=== PATIENT | female | born 1990 | race Caucasian/White ===

== ENCOUNTER → 2018-10-02 09:19 | Outpatient (CLI) | payer OTHER, SELFPAY ==
--- NOTE | 2018-10-06 08:02 | PM.PFT.1 ---
Pulmonary Function Test Referral & Results Date Patient Seen: 10/02/18 Requesting provider: Anum Elaine Results: The spirometry demonstrates an FVC of 3.40 L which is 102% of predicted. The FEV1 was measured at 2.45 L which is 85% of predicted. The FEV1/FVC ratio was 72 which is 84% of predicted. Following the administration of bronchodilator there was a 12% improvement in FEV1 and 46% improvement in FEF 25-75%. Lung volumes show an SVC of 3.32 L which is 99% of predicted. The diffusing capacity was measured at 23.85 which is 126% of predicted. The maximum voluntary ventilation was reduced Interpretation: This study demonstrates perhaps extremely mild obstructive lung disease based on minimal reduction in FEV1 and a 30% improvement in that number after bronchodilator as well as a larger improvement in small airway flow based on improvement in FEF 25-75% Lung volumes are normal in diffusing capacity is normal Maximum voluntary ventilation is surprisingly reduced raising the possibility of some neuromuscular disorder, versus poor effort at time of testing Clinical correlation suggested
== END ==
PROVIDERS: Visit Provider Specialist
DX: J45.30 Mild persistent asthma, uncomplicated (principal)
CPT/HCPCS: 94060; 94726; 94729

== ENCOUNTER 2018-10-04 08:40 | Emergency (ER) | payer OTHER, SELFPAY ==
[2018-10-04 08:47] VITALS: BP 116/74; PULSE 78; RESP 16; TEMP 36.2; O2SAT 100; BMI 28.3
--- NOTE | 2018-10-04 09:06 | DI.RAD.S_ITS ---
PROCEDURE: XR CHEST 2V INDICATIONS: dyspnea TECHNIQUE: 2 views of the chest were acquired. COMPARISON: None. FINDINGS: Surgical changes and devices: None. Lungs and pleura: Mild patchy opacity within the perihilar locations bilaterally.. No pleural effusions or pneumothorax. Mediastinum: Mediastinal contours are normal. Heart size is normal. Bones and chest wall: No suspicious bony abnormalities. Soft tissues appear unremarkable. IMPRESSION: Mild bilateral atypical pneumonia. Dictated by: Flory Mcgarry M.D. on 10/04/2018 at 8:42 Approved by: Flory Mcgarry M.D. on 10/04/2018 at 8:42
--- NOTE | 2018-10-04 09:10 | ED.ASTHMA ---
HPI - Asthma General Chief Complaint: Asthma Stated Complaint: Ashma/gas leak in liner roll changer Time Seen by Provider: 10/04/18 08:51 Source: patient Mode of arrival: ambulatory Limitations: no limitations History of Present Illness HPI Narrative: Patient comes emergency department complaining of shortness of breath and increased asthma exacerbations after being exposed to a ?gas leak[place] She does not know what kind of gas was leaking. Patient states that for several days this past week, she was in a closed liner roll changer where apparently the gas leak was primarily taking place. Patient states her last exposure in the closed environment was about 3 days ago. She states that she did work last night, but that the liner roll changer doors were left wide open, and she was in the office and the building. Patient has noted a vague headache throughout the week, and that her asthma seems to be acting up quite a bit more than usual. Patient denies any other asthma triggers recently, such as URI or allergies. She states that she generally uses her inhaler infrequently, and on as needed basis. Patient denies fevers or chills. She has not had a cough. No sputum production. She states she feels a tightness in her chest and a slight pain on the right side of her chest. She states this is worse when she takes a deep breath. Patient states she is otherwise healthy. No calf tenderness or swelling. No other complaints at this time. Related Data Previous Rx's Medication Instructions Recorded prednisone 60 mg PO DAILY #15 tab 10/04/18 Allergies Allergy/AdvReac Type Severity Reaction Status Date / Time No Known Drug Allergies Allergy Verified 10/04/18 08:52 Review of Systems Constitutional Denies chills, Denies fever(s), Denies lethargy and Denies weakness Eyes Denies change in vision, Denies eye discharge, Denies irritation and Denies loss of vision ENT Ears, Nose, Mouth, and Throat: Denies change in voice, Denies neck pain and Denies sore throat Cardiovascular Denies chest pain, Denies irregular heart rhythm, Denies lightheadedness, Denies palpitations, Reports dyspnea, Denies dyspnea on exertion and Denies orthopnea Respiratory Denies cough, Reports dyspnea, Denies dyspnea on exertion and Reports wheezing Gastrointestinal Gastrointestinal: Denies abdominal pain, Denies change in bowel habits, Denies diarrhea, Denies nausea and Denies vomiting Genitourinary Denies hematuria, Denies flank pain, Denies urinary incontinence and Denies urinary urgency Musculoskeletal Denies neck pain Integumentary/Breasts Denies pruritus, Denies erythema, Denies rash and Denies wounds Neurologic Denies confusion, Denies loss of vision and Denies weakness Psychiatric Denies anxiety, Denies confusion, Denies depression, Denies homicidal ideation and Denies suicidal ideation Endocrine Denies palpitations Hematologic/Lymphatic Denies easy bruising Allergic/Immunologic Reports wheezing Exam Initial Vital Signs Initial Vital Signs: Vital Signs Temperature 97.1 F L 10/04/18 08:47 Pulse Rate 78 10/04/18 08:47 Respiratory Rate 16 10/04/18 08:47 Blood Pressure 116/74 10/04/18 08:47 Pulse Oximetry 100 10/04/18 08:47 Const General: cooperative and well developed Nutritional Appearance: well nourished Orientation: alert, awake, oriented x3 and not confused HENVA Head: normocephalic and atraumatic Ears: external ears normal Nose: external nose normal and No nasal discharge Face and sinus: face symmetric and No dry mucous membranes Mouth: oral mucosae normal and moist mucous membranes Teeth and gingiva: dentition normal Eyes General: appearance normal, both eyes and all related structures Eyelids: eyelids normal Conjunctivae: conjunctivae normal Sclera: sclerae normal Pupils: PERRL EOM: EOM intact bilaterally Neck Neck: normal visual inspection, trachea midline, No lymphadenopathy, No midline deformity and No JVD Lymphatic: No lymphedema Chest Chest: normal inspection of the chest Resp Effort & Inspection: normal respiratory effort, able to speak in complete sentences, no respiratory distress and no use of accessory muscles Auscultation: clear to auscultation bilaterally, no rales, no rhonchi and no wheezes Cardio Rate: regular rate Rhythm: regular rhythm Heart Sounds: no click, no gallops, no murmurs and no rubs Pulses: normal peripheral pulses GI Inspection: non-distended Palpation: soft, no hepatosplenomegaly, No guarding, No pulsatile mass and No tender Auscultation: normal bowel sounds Back/Spine/Pelvis Back: No CVA tenderness Cervical Spine: cervical ROM normal and No pain with cervical ROM Thoracic/Lumbar Spine: thoracic and lumbar spine normal to inspection Skin General: no rashes or lesions noted, No jaundice and No petechiae Neuro General: alert, oriented x3, gait normal and no focal motor deficits Speech: speech normal Extrem General: full ROM, no clubbing, cyanosis or edema, no pedal edema and no calf tenderness Psych Appearance: well kempt Mental Status: mental status grossly normal Attitude: cooperative Thought Content: normal and suicidality Judgment: judgment good [facility] Medical History Asthma (Acute) Surgical History No pertinent past surgical history (Acute) Social History Smoking Status: Former smoker Social History Smoking Status: Former smoker Course Course Narrative: Patient stated she felt as though she needed another breathing treatment, so she was given albuterol neb, along with a dose of prednisone.. Chest x-ray was done and unremarkable. EKG was also unremarkable. Patient's carbon monoxide level was 4 on the CO detector. I did discuss with the patient that her respiratory status at this time is reassuring, and that the most important aspect of treatment is to stay away from the building where the gas leak is taking place until the issue was resolved. Patient may use her home inhalers, as needed. She should also complete a course of steroids which she will be prescribed. We have discussed home management of symptoms, as well as the usual medications for return. Orders Ordered: Discontinued Medications Albuterol/Ipratropium (Duoneb) 3 ml INH NOW ONE Stop: 10/04/18 09:10 Last Admin: 10/04/18 09:11 Dose: 3 ml Prednisone (Deltasone) 60 mg PO NOW ONE Stop: 10/04/18 09:15 Last Admin: 10/04/18 09:23 Dose: 60 mg Vital Signs - 8 hr 10/04/18 08:47 Temperature 97.1 F L Pulse Rate 78 Respiratory Rate 16 Blood Pressure 116/74 Pulse Oximetry 100 MDM - Asthma Medical Records Attestation: I reviewed the patient's medical records. Imaging Data Chest x-ray: Radiologist's impression: PROCEDURE: XR CHEST 2V INDICATIONS: dyspnea TECHNIQUE: 2 views of the chest were acquired. COMPARISON: None. FINDINGS: Surgical changes and devices: None. Lungs and pleura: Mild patchy opacity within the perihilar locations bilaterally.. No pleural effusions or pneumothorax. Mediastinum: Mediastinal contours are normal. Heart size is normal. Bones and chest wall: No suspicious bony abnormalities. Soft tissues appear unremarkable. IMPRESSION: Mild bilateral atypical pneumonia. Dictated by: Flory Mcgarry M.D. on 10/04/2018 at 8:42 Approved by: Flory Mcgarry M.D. on 10/04/2018 at 8:42 Discharge Plan Departure Patient Disposition: Home Clinical Impression: Exposure to gaseous substance Asthma Qualifiers: Asthma severity: mild Asthma persistence: intermittent Asthma complication type: with acute exacerbation Qualified Code(s): J45.21 - Mild intermittent asthma with (acute) exacerbation Discharge Date/Time: 10/04/18 09:37 Interventions: ED Discharge Assessment Last Done: 10/04/18 09:36 Instructions: DI for Asthma -- Adult Activity Restrictions/Additional Instructions: Please follow up with your primary doctor, as needed. Prescriptions: New prednisone 20 mg tablet 60 mg PO DAILY Qty: 15 RF: 0
[2018-10-04 09:11] VITALS: PULSE 88; RESP 18; O2SAT 99
[2018-10-04] MEDS: ALBUTEROL/IPRATROPIUM 3 ML AMPUL INH (09:11)
--- NOTE | 2018-10-04 09:14 | ED_ITS ---
HPI - Asthma General Chief Complaint: Asthma Stated Complaint: Ashma/gas leak in warp hanger Time Seen by Provider: 10/04/18 08:51 Source: patient Mode of arrival: ambulatory Limitations: no limitations History of Present Illness HPI Narrative: Patient comes emergency department complaining of shortness of breath and increased asthma exacerbations after being exposed to a ?gas leak? for a week at her [place]. She does not know what kind of gas was leaking. Patient states that for several days this past week, she was in a closed warp hanger where apparently the gas leak was primarily taking place. Patient states her last exposure in the closed environment was about 3 days ago. She states that she did work last night, but that the warp hanger doors were left wide open, and she was in the office and the building. Patient has noted a vague headache throughout the week, and that her asthma seems to be acting up quite a bit more than usual. Patient denies any other asthma triggers recently, such as URI or allergies. She states that she generally uses her inhaler infrequently, and on as needed basis. Patient denies fevers or chills. She has not had a cough. No sputum production. She states she feels a tightness in her chest and a slight pain on the right side of her chest. She states this is worse when she takes a deep breath. Patient states she is otherwise healthy. No calf tenderness or swelling. No other complaints at this time. Related Data Previous Rx's Medication Instructions Recorded prednisone 60 mg PO DAILY #15 tab 10/04/18 Allergies Allergy/AdvReac Type Severity Reaction Status Date / Time No Known Drug Allergies Allergy Verified 10/04/18 08:52 Review of Systems Constitutional Denies chills, Denies fever(s), Denies lethargy and Denies weakness Eyes Denies change in vision, Denies eye discharge, Denies irritation and Denies loss of vision ENT Ears, Nose, Mouth, and Throat: Denies change in voice, Denies neck pain and Denies sore throat Cardiovascular Denies chest pain, Denies irregular heart rhythm, Denies lightheadedness, Denies palpitations, Reports dyspnea, Denies dyspnea on exertion and Denies orthopnea Respiratory Denies cough, Reports dyspnea, Denies dyspnea on exertion and Reports wheezing Gastrointestinal Gastrointestinal: Denies abdominal pain, Denies change in bowel habits, Denies diarrhea, Denies nausea and Denies vomiting Genitourinary Denies hematuria, Denies flank pain, Denies urinary incontinence and Denies urinary urgency Musculoskeletal Denies neck pain Integumentary/Breasts Denies pruritus, Denies erythema, Denies rash and Denies wounds Neurologic Denies confusion, Denies loss of vision and Denies weakness Psychiatric Denies anxiety, Denies confusion, Denies depression, Denies homicidal ideation and Denies suicidal ideation Endocrine Denies palpitations Hematologic/Lymphatic Denies easy bruising Allergic/Immunologic Reports wheezing Exam Initial Vital Signs Initial Vital Signs: Vital Signs Temperature 97.1 F L 10/04/18 08:47 Pulse Rate 78 10/04/18 08:47 Respiratory Rate 16 10/04/18 08:47 Blood Pressure 116/74 10/04/18 08:47 Pulse Oximetry 100 10/04/18 08:47 Const General: cooperative and well developed Nutritional Appearance: well nourished Orientation: alert, awake, oriented x3 and not confused HENNJ Head: normocephalic and atraumatic Ears: external ears normal Nose: external nose normal and No nasal discharge Face and sinus: face symmetric and No dry mucous membranes Mouth: oral mucosae normal and moist mucous membranes Teeth and gingiva: dentition normal Eyes General: appearance normal, both eyes and all related structures Eyelids: eyelids normal Conjunctivae: conjunctivae normal Sclera: sclerae normal Pupils: PERRL EOM: EOM intact bilaterally Neck Neck: normal visual inspection, trachea midline, No lymphadenopathy, No midline deformity and No JVD Lymphatic: No lymphedema Chest Chest: normal inspection of the chest Resp Effort & Inspection: normal respiratory effort, able to speak in complete sentences, no respiratory distress and no use of accessory muscles Auscultation: clear to auscultation bilaterally, no rales, no rhonchi and no wheezes Cardio Rate: regular rate Rhythm: regular rhythm Heart Sounds: no click, no gallops, no murmurs and no rubs Pulses: normal peripheral pulses GI Inspection: non-distended Palpation: soft, no hepatosplenomegaly, No guarding, No pulsatile mass and No tender Auscultation: normal bowel sounds Back/Spine/Pelvis Back: No CVA tenderness Cervical Spine: cervical ROM normal and No pain with cervical ROM Thoracic/Lumbar Spine: thoracic and lumbar spine normal to inspection Skin General: no rashes or lesions noted, No jaundice and No petechiae Neuro General: alert, oriented x3, gait normal and no focal motor deficits Speech: speech normal Extrem General: full ROM, no clubbing, cyanosis or edema, no pedal edema and no calf tenderness Psych Appearance: well kempt Mental Status: mental status grossly normal Attitude: cooperative Thought Content: normal and suicidality Judgment: judgment good [facility] Medical History Asthma (Acute) Surgical History No pertinent past surgical history (Acute) Social History Smoking Status: Former smoker Social History Smoking Status: Former smoker Course Course Narrative: Patient stated she felt as though she needed another breathing treatment, so she was given albuterol neb, along with a dose of prednisone.. Chest x-ray was done and unremarkable. EKG was also unremarkable. Patient's carbon monoxide level was 4 on the CO detector. I did discuss with the patient that her respiratory status at this time is reassuring, and that the most important aspect of treatment is to stay away from the building where the gas leak is taking place until the issue was resolved. Patient may use her home inhalers, as needed. She should also complete a course of steroids which she will be prescribed. We have discussed home management of symptoms, as well as the usual medications for return. Orders Ordered: Discontinued Medications Albuterol/Ipratropium (Duoneb) 3 ml INH NOW ONE Stop: 10/04/18 09:10 Last Admin: 10/04/18 09:11 Dose: 3 ml Prednisone (Deltasone) 60 mg PO NOW ONE Stop: 10/04/18 09:15 Last Admin: 10/04/18 09:23 Dose: 60 mg Vital Signs - 8 hr 10/04/18 08:47 Temperature 97.1 F L Pulse Rate 78 Respiratory Rate 16 Blood Pressure 116/74 Pulse Oximetry 100 MDM - Asthma Medical Records Attestation: I reviewed the patient's medical records. Imaging Data Chest x-ray: Radiologist's impression: PROCEDURE: XR CHEST 2V INDICATIONS: dyspnea TECHNIQUE: 2 views of the chest were acquired. COMPARISON: None. FINDINGS: Surgical changes and devices: None. Lungs and pleura: Mild patchy opacity within the perihilar locations bilaterally.. No pleural effusions or pneumothorax. Mediastinum: Mediastinal contours are normal. Heart size is normal. Bones and chest wall: No suspicious bony abnormalities. Soft tissues appear unremarkable. IMPRESSION: Mild bilateral atypical pneumonia. Dictated by: Flory Mcgarry M.D. on 10/04/2018 at 8:42 Approved by: Flory Mcgarry M.D. on 10/04/2018 at 8:42 Discharge Plan Departure Patient Disposition: Home Clinical Impression: Exposure to gaseous substance Asthma Qualifiers: Asthma severity: mild Asthma persistence: intermittent Asthma complication type: with acute exacerbation Qualified Code(s): J45.21 - Mild intermittent asthma with (acute) exacerbation Discharge Date/Time: 10/04/18 09:37 Interventions: ED Discharge Assessment Last Done: 10/04/18 09:36 Instructions: DI for Asthma -- Adult Activity Restrictions/Additional Instructions: Please follow up with your primary doctor, as needed. Prescriptions: New prednisone 20 mg tablet 60 mg PO DAILY Qty: 15 RF: 0
[2018-10-04] MEDS: predniSONE 20 MG TABLET 60 MG PO (09:23)
[2018-10-04 09:24] VITALS: BP 114/74; PULSE 98; RESP 18; O2SAT 98
== END 2018-10-04 09:37 | disposition home or self-care (01) ==
PROVIDERS: Emergency Provider Emergency Medicine
DX: J45.21 Mild intermittent asthma with (acute) exacerbation (principal); Z57.5 Occupational exposure to toxic agents in other industries; R06.02 Shortness of breath; Y99.1 Military activity
CPT/HCPCS: 71046; 93005; 93010; 94640; 99282; 99284

== ENCOUNTER 2021-08-27 12:50 | Emergency (ER) | payer OTHER, SELFPAY ==
[2021-08-27 13:03] VITALS: BP 144/100; PULSE 79; RESP 16; TEMP 36.1; O2SAT 99; BMI 28.7
[2021-08-27] MEDS: hydrOXYzine pamoate 25 MG CAPSULE PO (14:48)
[2021-08-27] MEDS: predniSONE 20 MG TABLET 40 MG PO (14:48)
[2021-08-27] MEDS: FLUTICASONE 120 SPRAY/16 GM SPRAY.SUSP NASAL (14:48)
[2021-08-27] MEDS: AMOXICILLIN/CLAV 875/125 MG 1 TAB PO (14:48)
[2021-08-27 14:56] VITALS: BP 136/74; PULSE 80; RESP 16; O2SAT 97
--- NOTE | 2021-08-27 20:16 | ED_ITS ---
HPI - Ear Problem <NANI Caballero - Last Filed: 08/27/21 20:26> General Chief complaint: Ear Stated complaint: ear infection left ear dizzy pressure in head Time Seen by Provider: 08/27/21 14:17 History of Present Illness HPI Narrative: This is a 31-year-old female who presents to the emergency department complaining of worsening congestion, sinus tenderness, left ear pain and states she has a history of allergic rhinitis, asthma, and significant seasonal allergies. Patient is on levealbuterol, Advair, Singulair, and states that her asthma is well controlled currently. She states that her left ear has been difficult to hear out of, she has had sensation of sinus fullness and facial pain, her symptoms started over one week ago. Patient states that she had COVID a couple months ago, has an upcoming echo and CTA chest later this week from her primary care provider. Patient denies any recent antibiotics. She denies any wheezing or significant coughing, she states that she does have shortness of breath, congestion, and is difficult to breathe through her nose. Related Data Previous Rx's Medication Instructions Recorded prednisone 20 mg tablet 60 mg PO DAILY #15 tab 10/04/18 amoxicillin 875 mg-potassium 1 tab PO BID 7 Days #14 tab 08/27/21 clavulanate 125 mg tablet fluticasone propionate 50 1 spray INTRANASAL BID 14 Days #16 08/27/21 mcg/actuation nasal g spray,suspension hydroxyzine HCl 25 mg tablet 25 mg PO BID PRN #30 tab 08/27/21 methylprednisolone 4 mg tablets in See Rx Instructions .ROUTE 08/27/21 a dose pack (Medrol (Benji)) .COMPLEX #21 ea Allergies Allergy/AdvReac Type Severity Reaction Status Date / Time No Known Drug Allergies Allergy Verified 10/04/18 08:52 Review of Systems <NANI Caballero - Last Filed: 08/27/21 20:26> Review of Systems Narrative: General: denies fever, chills Head/Neck: denies headache, neck pain, endorses facial pain from sinuses Eyes: denies visual changes, eye pain Ears: Denies any ear drainage, endorses left ear pain Cardio: denies chest pain, palpitations Respiratory: denies shortness of breath, cough GI: denies abdominal pain, nausea, vomiting, or diarrhea : denies dysuria, hematuria or flank pain MSK: denies new joint pain, muscle weakness or swelling Skin: denies rash, itching or wound Neuro: denies numbness, tingling, dizziness Patient History <NANI Caballero - Last Filed: 08/27/21 20:26> Medical History (Updated 08/27/21 @ 14:37 by NANI Caballero) Asthma Surgical History No pertinent past surgical history Social History Smoking Status: Former smoker Smoking Status: Former smoker alcohol intake frequency: a few times a week Substance Use Type: does not use Exam <NANI Caballero - Last Filed: 08/27/21 20:26> Narrative Exam Narrative: Independently reviewed vitals signs and nursing notes. General: cooperative, comfortable, in no acute distress, well groomed Head: atraumatic, symmetrical facial expressions Neck: supple Eyes: equal round and reactive, EOMI, conjunctiva normal Ears: Left ear canal is normal, left TM is bulging, purulence, erythematous, loss of landmarks and light reflex, right ear canal with erythema, crusting and flaking, TM is pearly jacobs with positive light reflex and landmarks. Patient states that her right ear was recently irrigated out, this is likely excoriation due to irrigation trauma Nose: nares patent, sinus tenderness to palpation, postnasal drip Mouth/Throat: moist mucus membranes Cardiovascular: regular rate and rhythm, no peripheral edema, warm extremities Respiratory: normal effort, intermittent expiratory wheezes, able to speak in complete sentences, no audible wheezing, stridor, or rales. No retractions or tachypnea has shortness of breath with long sentences GI: abdomen soft, nontender to palpation, nondistended, no masses, no exquisite tenderness with exam, without guarding or rebound. MSK: moves all extremities, neurovascularly intact, no weakness, normal tone Skin: brisk capillary refill, no rash, no erythema Neuro: normal speech and cognition, A&O x3 Psych: mental status is grossly normal, congruent mood, normal affect, pleasant and cooperative Initial Vital Signs Initial Vital Signs: Vital Signs Temperature 97.0 F L 08/27/21 13:03 Pulse Rate 79 08/27/21 13:03 Respiratory Rate 16 08/27/21 13:03 Blood Pressure 144/100 H 08/27/21 13:03 Pulse Oximetry 99 08/27/21 13:03 <Savanna Recinos DO - Last Filed: 08/28/21 07:16> Initial Vital Signs Initial Vital Signs: Vital Signs Temperature 97.0 F L 08/27/21 13:03 Pulse Rate 79 08/27/21 13:03 Respiratory Rate 16 08/27/21 13:03 Blood Pressure 144/100 H 08/27/21 13:03 Pulse Oximetry 99 08/27/21 13:03 Course <NANI Caballero - Last Filed: 08/27/21 20:26> Orders Ordered: Discontinued Medications Amoxicillin/Clavulanate Potassium (Amoxicillin/Clav 875/125 Mg) 1 tab PO NOW ONE Stop: 08/27/21 14:28 Last Admin: 08/27/21 14:48 Dose: 1 tab Documented by: GORDON Fluticasone Propionate (Fluticasone 120 [place]/16 Gm [place].Susp) 1 spray NASAL NOW ONE Stop: 08/27/21 14:28 Last Admin: 08/27/21 14:48 Dose: 1 spray Documented by: GORDON Hydroxyzine Pamoate (Hydroxyzine Pamoate 25 Mg Capsule) 25 mg PO NOW ONE Stop: 08/27/21 14:28 Last Admin: 08/27/21 14:48 Dose: 25 mg Documented by: GORDON Prednisone (Prednisone 20 Mg Tablet) 40 mg PO NOW ONE Stop: 08/27/21 14:28 Last Admin: 08/27/21 14:48 Dose: 40 mg Documented by: GORDON Vital Signs Vital signs: Vital Signs - 8 hr 08/27/21 13:03 08/27/21 14:56 Temperature 97.0 F L Pulse Rate 79 80 Respiratory Rate 16 16 Blood Pressure 144/100 H 136/74 Pulse Oximetry 99 97 <Savanna Recinos DO - Last Filed: 08/28/21 07:16> Orders Ordered: Discontinued Medications Amoxicillin/Clavulanate Potassium (Amoxicillin/Clav 875/125 Mg) 1 tab PO NOW ONE Stop: 08/27/21 14:28 Last Admin: 08/27/21 14:48 Dose: 1 tab Documented by: GORDON Fluticasone Propionate (Fluticasone 120 [place]/16 Gm [place].Susp) 1 spray NASAL NOW ONE Stop: 08/27/21 14:28 Last Admin: 08/27/21 14:48 Dose: 1 spray Documented by: GORDON Hydroxyzine Pamoate (Hydroxyzine Pamoate 25 Mg Capsule) 25 mg PO NOW ONE Stop: 08/27/21 14:28 Last Admin: 08/27/21 14:48 Dose: 25 mg Documented by: GORDON Prednisone (Prednisone 20 Mg Tablet) 40 mg PO NOW ONE Stop: 08/27/21 14:28 Last Admin: 08/27/21 14:48 Dose: 40 mg Documented by: GORDON Vital Signs Vital signs: Vital Signs - 8 hr 08/27/21 13:03 08/27/21 14:56 Temperature 97.0 F L Pulse Rate 79 80 Respiratory Rate 16 16 Blood Pressure 144/100 H 136/74 Pulse Oximetry 99 97 Medical Decision Making <NANI Caballero - Last Filed: 08/27/21 20:26> MDM Narrative Medical decision making narrative: This is a 31-year-old female with history of asthma, allergic rhinitis, who presents to the emergency department complaining of left ear pain, ongoing sinus tenderness and congestion over one week. She endorses having chills, denies any nausea vomiting, states that her hearing is decreased in her left ear, and it has been painful for over one week. On exam, it appears that she has left otitis media, she has a bulging left tympanic membrane which is erythematous and suppurative. Her right ear canal with excoriation, [place] Does not appear to be otitis externa on the right. She was nontender with otoscopic exam. Patient has sinus tenderness to palpation, she does have mild expiratory wheezes on auscultation, she denies any significant shortness of breath, coughing, wheezing. She has been using her levealbuterol, Advair, and Singulair as prescribed and feels like she is worsening. This is most likely eustachian tube dysfunction with subsequent left otitis media and acute sinusitis. She was treated with prednisone, prescribed fluticasone, hydroxyzine, methylprednisolone, and Augmentin for b.i.d. dosing x5 days. Patient states that she started amoxicillin yesterday, has taken two doses, has had worsening of her congestion. Encourage patient to treat her symptoms with her allergy medications to improve her congestion, she has follow- up scheduled later this week, she was given strict return precautions for the emergency department. Patient is appropriate and amenable to discharge home. Vital signs are stable on repeat examination is unremarkable. Patient has been informed of results. Patient has been given strict return to ER precautions for any new or worsening symptoms. Patient understands to follow up closely with outpatient providers as instructed. Patient understands plan and agrees to discharge home. All questions and concerns answered at this time. Discharge Plan Departure Patient Disposition: Home Clinical Impression: Acute otitis media, left Sinusitis Qualifiers: Sinusitis location: unspecified location Chronicity: acute Recurrence: not specified as recurrent Qualified Code(s): J01.90 - Acute sinusitis, unspecified Instructions: Sinusitis, Middle Ear Infection Activity Restrictions/Additional Instructions: *You have been diagnosed with a left ear infection, and a sinus infection, allergic rhinitis with eustachian tube dysfunction. This steroids should help clear up some of your congestion, please use Flonase morning and night to help with your congestion, continue taking Singulair or consider taking Zyrtec if that might work better for you. I hope that you start feeling better soon, I have sent Augmentin which is like amoxicillin but has enough coverage to treat both your ear and your sinuses to the [facility], please take this twice a day for the next seven days, your given a dose today so you can skip your does tonight. Please return to the emergency department for any worsening of your symptoms, please follow-up with your primary care provider as needed, you can use hydroxyzine for itching and is easier to use during the daytime. Take Benadryl at night to help reduce some of the congestion and hope you start feeling better soon. *What to do: *Please continue to take your regular medications as directed. [x] New medication prescriptions sent to your pharmacy: [[facility] ] [ ] New medication written as a paper prescription [ ] No new medications given *Please follow up with your primary care provider in 2-3 days, call for an appointment. Let them know you were seen in the Emergency Department and that we asked that you be seen for follow-up. We will electronically transmit a record of today's note if your PCP is in our system *If you do not have a primary care provider please contact [phone] to establish care with one of the [facility] primary care providers. *Return to Emergency Department if you should have any new, worsening or concerning symptoms, such as [fever greater than 101F, chills, worsening pain, persistent vomiting or other bothersome symptoms] Prescriptions: New methylprednisolone [Medrol (Benji)] 4 mg tablets,dose pack See Rx Instructions .ROUTE .COMPLEX Qty: 21 0RF Rx Instructions: orally per package directions hydroxyzine HCl 25 mg tablet 25 mg PO BID PRN (Reason: itching) Qty: 30 0RF amoxicillin-pot clavulanate 875-125 mg tablet 1 tab PO BID 7 Days Qty: 14 0RF fluticasone propionate 50 mcg/actuation spray,suspension 1 spray intranasal BID 14 Days Qty: 16 0RF Rx Instructions: administer into each nostril No Action prednisone 20 mg tablet 60 mg PO DAILY Qty: 15 0RF Referrals: Wilmer Davalos MD [Primary Care Provider] - Stand Alone Forms: Work Release Note <Savanna Recinos DO - Last Filed: 08/28/21 07:16> Cosign ED Attending Cosauroraature Attestation: I was immediately available in the department for consultation. Documentation has been reviewed. I agree with assessment and plan.
== END 2021-08-27 14:56 | disposition home or self-care (01) ==
PROVIDERS: Emergency Provider Nurse Practitioner Critical Care Medicine; PCP Student in an Organized Health Care Education/Training Program
DX: H66.92 Otitis media, unspecified, left ear (principal); J01.90 Acute sinusitis, unspecified
CPT/HCPCS: 99283

== ENCOUNTER 2022-03-13 16:22 | Emergency (ER) | payer OTHER, SELFPAY ==
[2022-03-13 16:30] VITALS: BP 152/65; PULSE 64; RESP 26; TEMP 36.5; O2SAT 96; BMI 28.9
[2022-03-13] MEDS: IBUPROFEN 400 MG TABLET 600 MG PO (16:43)
[2022-03-13 17:20] LABS: Influenza A - CEPHEID Flu A NEGATIVE (NEGATIVE); Influenza B - CEPHEID Flu B NEGATIVE (NEGATIVE); Respiratory Syncytial Virus Negative (Negative)
[2022-03-13 17:30] VITALS: PULSE 124; RESP 24; O2SAT 96
--- NOTE | 2022-03-13 17:31 | ED_ITS ---
HPI - Asthma <NANI Caballero - Last Filed: 03/13/22 19:46> General Chief Complaint: Asthma Stated Complaint: asthma, difficulthy breathing, cough Time Seen by Provider: 03/13/22 17:27 Source: patient Mode of arrival: Ambulatory History of Present Illness HPI Narrative: This is a 31-year-old female with severe asthma history who presents to the emergency department after 4 days of congestion, cough, states that she is been exposed to influenza and RSV but today was so short of breath she had to leave work. At baseline she takes Xopenex, Advair, Spiriva, Flonase, Singulair and Adderall as her daily medications. She sees Dr. Arias for primary care and states that she had emesis x1 3 days ago. She denies fever chills, states that shortness of breath is her primary symptom, has difficulty with exhalation. Related Data Previous Rx's Medication Instructions Recorded prednisone 20 mg tablet 60 mg PO DAILY #15 tabs 10/04/18 hydroxyzine HCl 25 mg tablet 25 mg PO BID PRN itching #30 tabs 08/27/21 methylprednisolone 4 mg tablets in See Rx Instructions PO .COMPLEX 08/27/21 a dose pack (Medrol (Benji)) #21 ea magnesium oxide 400 mg PO BEDTIME #30 caps 03/13/22 prednisone 50 mg tablet 50 mg PO DAILY #20 tabs 03/13/22 Allergies Allergy/AdvReac Type Severity Reaction Status Date / Time No Known Drug Allergies Allergy Verified 10/04/18 08:52 Review of Systems <NANI Caballero - Last Filed: 03/13/22 19:46> Review of Systems Narrative: Review of systems is negative for acute abnormalities unless otherwise noted in HPI Patient History <NANI Caballero - Last Filed: 03/13/22 19:46> Medical History (Updated 03/13/22 @ 19:42 by NANI Caballero) Asthma Surgical History No pertinent past surgical history Social History Smoking Status: Former smoker Smoking Status: Former smoker alcohol intake frequency: a few times a week Substance Use Type: does not use Exam <NANI Caballero - Last Filed: 03/13/22 19:46> Narrative Exam Narrative: Reviewed vitals signs and nursing notes. General: cooperative, comfortable, in no acute distress, well groomed HEENT: symmetrical facial expressions, moist mucous membranes Cardiovascular: regular rate and rhythm, no peripheral edema, warm extremities Respiratory: Increased effort, able to speak in 2 or 3 word sentences, wheezes but primarily tight throughout with shortness of breath, mild retractions with tachypnea After 1st DuoNeb, patient had improved aeration and decreased work of breathing although she still has scattered wheezes throughout, tachypnea, decreased breath sounds overall GI: abdomen soft, nontender to palpation, nondistended, without masses, rebound tenderness or exquisite tenderness with exam. MSK: moves all extremities, neurovascularly intact, no weakness, normal tone Skin: brisk capillary refill, without pallor or erythema Neuro: normal speech and cognition, A&O x3, ambulatory, clear speech Psych: mental status is grossly normal, congruent mood, normal affect, pleasant and cooperative Initial Vital Signs Initial Vital Signs: Vital Signs Temperature 97.7 F 03/13/22 16:30 Pulse Rate 64 03/13/22 16:30 Respiratory Rate 26 H 03/13/22 16:30 Blood Pressure 152/65 H 03/13/22 16:30 Pulse Oximetry 96 03/13/22 16:30 Oxygen Delivery Method 03/13/22 16:30 <Jack Wood DO - Last Filed: 03/13/22 20:20> Initial Vital Signs Initial Vital Signs: Vital Signs Temperature 97.7 F 03/13/22 16:30 Pulse Rate 64 03/13/22 16:30 Respiratory Rate 26 H 03/13/22 16:30 Blood Pressure 152/65 H 03/13/22 16:30 Pulse Oximetry 96 03/13/22 16:30 Oxygen Delivery Method 03/13/22 16:30 Course <NANI Caballero - Last Filed: 03/13/22 19:46> Orders Ordered: ED Orders 03/13/22 16:36 Covid-19 + FLU A/B + RSV - PCR Stat 03/13/22 17:29 RT Consult Eval and Treat NOW 03/13/22 18:04 Chest [XR chest 1V] Stat 03/13/22 18:26 CBC Auto Diff [Complete Blood Count AUTO DIFF] Stat CMP [Comprehensive Metabolic Panel] Stat Magnesium Stat Discontinued Medications Albuterol (Albuterol 2.5 Mg/3 Ml Neb (Adult)) 2.5 mg INH NOW ONE Stop: 03/13/22 18:14 Last Admin: 03/13/22 19:32 Dose: 2.5 mg Documented By: ESTEFANY Albuterol/Ipratropium (Albuterol/Ipratropium 3 Ml Ampul) 3 ml INH NOW ONE Stop: 03/13/22 17:29 Last Admin: 03/13/22 17:33 Dose: 3 ml Documented By: PARI Albuterol/Ipratropium (Albuterol/Ipratropium 3 Ml Ampul) 3 ml INH NOW ONE Stop: 03/13/22 17:30 Last Admin: 03/13/22 17:31 Dose: Not Given Documented By: SLOAN Dexamethasone (Dexamethasone 10 Mg/Ml Vial) 10 mg IV NOW ONE Stop: 03/13/22 17:30 Last Admin: 03/13/22 17:39 Dose: 10 mg Documented By: SLOAN Magnesium Sulfate (Magnesium Sulfate) 2 gm in 50 mls @ 150 mls/hr IV NOW ONE Stop: 03/13/22 18:32 Last Infusion: 03/13/22 18:41 Dose: 0 mls/hr Documented By: SLOAN Co-signed By: SLOAN(2) Admin: 03/13/22 18:19 Dose: 150 mls/hr Documented By: SLOAN Co-signed By: FLAVIO Ibuprofen (Ibuprofen 400 Mg Tablet) 600 mg PO NOW ONE Stop: 03/13/22 16:40 Last Admin: 03/13/22 16:43 Dose: 600 mg Documented By: SRIDHAR Vital Signs Vital signs: Vital Signs - 8 hr 03/13/22 16:30 03/13/22 17:38 03/13/22 17:38 Temperature 97.7 F Pulse Rate 64 119 H Respiratory Rate 26 H Blood Pressure 152/65 H 136/90 Pulse Oximetry 96 100 Oxygen Delivery Method Room Air 03/13/22 18:00 03/13/22 18:00 03/13/22 17:30 Temperature Pulse Rate 124 H 124 H Respiratory Rate 24 Blood Pressure 143/90 H Pulse Oximetry 95 96 Oxygen Delivery Method 03/13/22 19:32 03/13/22 19:35 Temperature Pulse Rate 134 H Respiratory Rate 16 Blood Pressure 134/86 Pulse Oximetry 96 Oxygen Delivery Method Room Air Room Air <Jack Wood DO - Last Filed: 03/13/22 20:20> Orders Ordered: ED Orders 03/13/22 16:36 Covid-19 + FLU A/B + RSV - PCR Stat 03/13/22 17:29 RT Consult Eval and Treat NOW 03/13/22 18:04 Chest [XR chest 1V] Stat 03/13/22 18:26 CBC Auto Diff [Complete Blood Count AUTO DIFF] Stat CMP [Comprehensive Metabolic Panel] Stat Magnesium Stat Discontinued Medications Albuterol (Albuterol 2.5 Mg/3 Ml Neb (Adult)) 2.5 mg INH NOW ONE Stop: 03/13/22 18:14 Last Admin: 03/13/22 19:32 Dose: 2.5 mg Documented By: ESTEFANY Albuterol/Ipratropium (Albuterol/Ipratropium 3 Ml Ampul) 3 ml INH NOW ONE Stop: 03/13/22 17:29 Last Admin: 03/13/22 17:33 Dose: 3 ml Documented By: PARI Albuterol/Ipratropium (Albuterol/Ipratropium 3 Ml Ampul) 3 ml INH NOW ONE Stop: 03/13/22 17:30 Last Admin: 03/13/22 17:31 Dose: Not Given Documented By: SLOAN Dexamethasone (Dexamethasone 10 Mg/Ml Vial) 10 mg IV NOW ONE Stop: 03/13/22 17:30 Last Admin: 03/13/22 17:39 Dose: 10 mg Documented By: SLOAN Magnesium Sulfate (Magnesium Sulfate) 2 gm in 50 mls @ 150 mls/hr IV NOW ONE Stop: 03/13/22 18:32 Last Infusion: 03/13/22 18:41 Dose: 0 mls/hr Documented By: SLOAN Co-signed By: SLOAN(2) Admin: 03/13/22 18:19 Dose: 150 mls/hr Documented By: SLOAN Co-signed By: FLAVIO Ibuprofen (Ibuprofen 400 Mg Tablet) 600 mg PO NOW ONE Stop: 03/13/22 16:40 Last Admin: 03/13/22 16:43 Dose: 600 mg Documented By: SRIDHAR Vital Signs Vital signs: Vital Signs - 8 hr 03/13/22 16:30 03/13/22 17:38 03/13/22 17:38 Temperature 97.7 F Pulse Rate 64 119 H Respiratory Rate 26 H Blood Pressure 152/65 H 136/90 Pulse Oximetry 96 100 Oxygen Delivery Method Room Air 03/13/22 18:00 03/13/22 18:00 03/13/22 17:30 Temperature Pulse Rate 124 H 124 H Respiratory Rate 24 Blood Pressure 143/90 H Pulse Oximetry 95 96 Oxygen Delivery Method 03/13/22 19:32 03/13/22 19:35 Temperature Pulse Rate 134 H Respiratory Rate 16 Blood Pressure 134/86 Pulse Oximetry 96 Oxygen Delivery Method Room Air Room Air MDM - Asthma <NANI Caballero - Last Filed: 03/13/22 19:46> Lab Data Result diagrams: 03/13/22 18:26 03/13/22 18:26 Labs: Lab Results 03/13/22 03/13/22 03/13/22 Range/Units 16:36 18:26 18:26 WBC 13.0 H (4.5-11.0) X10^3/uL RBC 3.56 L (4.0-5.2) X10^6/uL Hgb 10.2 L (12.0-16.0) g/dL Hct 31.3 L (36-46) % MCV 88.0 (80-100) fL MCH 28.8 (26-34) PG MCHC 32.7 (30-36) % RDW 14.2 (11.6-14.8) % Plt Count 316 (150-400) X10^3/uL Neut % (Auto) 74.0 (50-75) % Lymph % (Auto) 7.1 L (25-40) % [place] % (Auto) 6.0 (3-14) % Eos % (Auto) 12.3 H (2-4) % Baso % (Auto) 0.6 (0-2) % Neut # (Auto) 9600 H (5822-2110) /uL Lymph # (Auto) 900 L (1296-4900) /uL [place] # (Auto) 800 (0-900) /uL Eos # (Auto) 1600 H (0-450) /uL Baso # (Auto) 100 (0-100) /uL Sodium (137-145) mmol/L Potassium (3.4-5.1) mmol/L Chloride (98-107) mmol/L Carbon Dioxide (22-32) mmol/L BUN (7-17) mg/dL Creatinine (0.52-1.04) mg/dL Estimated GFR (>60) mL/min BUN/Creatinine Ratio (6-22) Glucose (70-100) mg/dL Calcium (8.4-10.2) mg/dL Magnesium 1.7 (1.6-2.3) mg/dL Total Bilirubin (0.2-1.3) mg/dL AST (14-36) IU/L ALT (<35) IU/L Alkaline Phosphatase (38-126) U/L Total Protein (6.3-8.2) g/dL Albumin (3.5-5.0) g/dL Globulin (1.7-4.1) g/dL Albumin/Globulin Ratio (1.0-2.8) SARS-CoV-2 (PCR) Negative (Negative) Influenza A (RT-PCR) Flu a negative (NEGATIVE) Influenza B (RT-PCR) Flu b negative (NEGATIVE) RSV (PCR) Negative (Negative) 03/13/22 Range/Units 18:26 WBC (4.5-11.0) X10^3/uL RBC (4.0-5.2) X10^6/uL Hgb (12.0-16.0) g/dL Hct (36-46) % MCV (80-100) fL MCH (26-34) PG MCHC (30-36) % RDW (11.6-14.8) % Plt Count (150-400) X10^3/uL Neut % (Auto) (50-75) % Lymph % (Auto) (25-40) % [place] % (Auto) (3-14) % Eos % (Auto) (2-4) % Baso % (Auto) (0-2) % Neut # (Auto) (3812-8892) /uL Lymph # (Auto) (8526-6525) /uL [place] # (Auto) (0-900) /uL Eos # (Auto) (0-450) /uL Baso # (Auto) (0-100) /uL Sodium 138 (137-145) mmol/L Potassium 3.4 (3.4-5.1) mmol/L Chloride 104 (98-107) mmol/L Carbon Dioxide 23 (22-32) mmol/L BUN 10 (7-17) mg/dL Creatinine 0.63 (0.52-1.04) mg/dL Estimated GFR > 60 (>60) mL/min BUN/Creatinine Ratio 15.9 (6-22) Glucose 129 H (70-100) mg/dL Calcium 8.8 (8.4-10.2) mg/dL Magnesium (1.6-2.3) mg/dL Total Bilirubin 0.3 (0.2-1.3) mg/dL AST 26 (14-36) IU/L ALT 27 (<35) IU/L Alkaline Phosphatase 68 (38-126) U/L Total Protein 7.5 (6.3-8.2) g/dL Albumin 4.4 (3.5-5.0) g/dL Globulin 3.1 (1.7-4.1) g/dL Albumin/Globulin Ratio 1.4 (1.0-2.8) SARS-CoV-2 (PCR) (Negative) Influenza A (RT-PCR) (NEGATIVE) Influenza B (RT-PCR) (NEGATIVE) RSV (PCR) (Negative) Imaging Data Chest x-ray: Radiologist's Impression: PROCEDURE:? XR CHEST 1V ? INDICATIONS:? asthma exacerbation ? TECHNIQUE:? One view of the chest was acquired.? ? COMPARISON:? [facility], , XR CHEST 2V, 10/04/2018, 9:13. ? FINDINGS:? ? Surgical changes and devices:? None.? ? Lungs and pleura:? No suspicious focal airspace opacity identified.? No pleural effusions or pneumothorax.? ? Mediastinum:? Mediastinal contours appear normal.? Heart size is normal.? ? Bones and chest wall:? No suspicious bony lesions.? Overlying soft tissues appear unremarkable.? ? IMPRESSION:? No acute cardiopulmonary abnormality. ? ? Dictated by: José Manuel Sultana M.D. on 03/13/2022 at 17:30 ? ? Approved by: José Manuel Sultana M.D. on 03/13/2022 at 17:31 ? MDM Narrative Medical decision making narrative: This is a 31-year-old female presents to the emergency department with an asthma exacerbation in moderate distress, she was using her albuterol inhaler in the waiting room, with diminished breath sounds throughout, tachypnea, increased respiratory effort, and concern about upper respiratory viral symptoms over the last 4 days. She states that she is had exposure to influenza and RSV and has been feeling more short of breath than usual over the last few days. She was given her own MDI inhaler in triage, when she got back to a room she was given a DuoNeb, this helped her effort and improved aeration, she still had scattered wheezes throughout and was given a 2nd nebulizer of albuterol which improved her symptoms. She was given magnesium 2 g,, her 2nd nebulizer of albuterol improved her breathing, her heart rate was sitting 135, her shortness of breath had improved, patient states that her heart rate was high enough and that her breathing is better than it was. She states that more albuterol tends to make her feel poorly if her heart rate gets much higher than this. Opted to hold off on any more since she has improved with her peak flow up to 200 since arrival. Initially it was in the 130 range. Her respiratory panel is negative for influenza, COVID, and RSV. Chest x-ray is negative for pneumonia as she has history of pneumonia, without focal airspace opacity. Patient states that she sees Dr. Escobar for her severe asthma, at home she takes Xopenex, Singulair, Advair, Flonase, albuterol and Spiriva. - Asthma exacerbation without evidence of hypoxia, respiratory distress, dehydration, or focal exam to suggest secondary bacterial infection. - Prednisone prescribed today with enough for patient to titrate down on, discussed how to do this with her, she is very familiar with prednisone tapers.. Use albuterol with spacer up to to every 4-6 hours as needed for shortness of breath/wheezing. - Discussed supportive treatments: Tylenol/Motrin as needed for pain/fever. OTC antihistamines for symptomatic relief. Maintain adequate fluid intake. - Follow-up with PCP as directed. Return to clinic/ER instructions discussed for new, not improving, or worsening symptoms. All questions answered. <Jack Wood, DO - Last Filed: 03/13/22 20:20> Lab Data Labs: Lab Results 03/13/22 03/13/22 03/13/22 Range/Units 16:36 18:26 18:26 WBC 13.0 H (4.5-11.0) X10^3/uL RBC 3.56 L (4.0-5.2) X10^6/uL Hgb 10.2 L (12.0-16.0) g/dL Hct 31.3 L (36-46) % MCV 88.0 (80-100) fL MCH 28.8 (26-34) PG MCHC 32.7 (30-36) % RDW 14.2 (11.6-14.8) % Plt Count 316 (150-400) X10^3/uL Neut % (Auto) 74.0 (50-75) % Lymph % (Auto) 7.1 L (25-40) % [place] % (Auto) 6.0 (3-14) % Eos % (Auto) 12.3 H (2-4) % Baso % (Auto) 0.6 (0-2) % Neut # (Auto) 9600 H (1234-9259) /uL Lymph # (Auto) 900 L (1602-9584) /uL [place] # (Auto) 800 (0-900) /uL Eos # (Auto) 1600 H (0-450) /uL Baso # (Auto) 100 (0-100) /uL Sodium (137-145) mmol/L Potassium (3.4-5.1) mmol/L Chloride (98-107) mmol/L Carbon Dioxide (22-32) mmol/L BUN (7-17) mg/dL Creatinine (0.52-1.04) mg/dL Estimated GFR (>60) mL/min BUN/Creatinine Ratio (6-22) Glucose (70-100) mg/dL Calcium (8.4-10.2) mg/dL Magnesium 1.7 (1.6-2.3) mg/dL Total Bilirubin (0.2-1.3) mg/dL AST (14-36) IU/L ALT (<35) IU/L Alkaline Phosphatase (38-126) U/L Total Protein (6.3-8.2) g/dL Albumin (3.5-5.0) g/dL Globulin (1.7-4.1) g/dL Albumin/Globulin Ratio (1.0-2.8) SARS-CoV-2 (PCR) Negative (Negative) Influenza A (RT-PCR) Flu a negative (NEGATIVE) Influenza B (RT-PCR) Flu b negative (NEGATIVE) RSV (PCR) Negative (Negative) 03/13/22 Range/Units 18:26 WBC (4.5-11.0) X10^3/uL RBC (4.0-5.2) X10^6/uL Hgb (12.0-16.0) g/dL Hct (36-46) % MCV (80-100) fL MCH (26-34) PG MCHC (30-36) % RDW (11.6-14.8) % Plt Count (150-400) X10^3/uL Neut % (Auto) (50-75) % Lymph % (Auto) (25-40) % [place] % (Auto) (3-14) % Eos % (Auto) (2-4) % Baso % (Auto) (0-2) % Neut # (Auto) (3505-1628) /uL Lymph # (Auto) (3494-6777) /uL [place] # (Auto) (0-900) /uL Eos # (Auto) (0-450) /uL Baso # (Auto) (0-100) /uL Sodium 138 (137-145) mmol/L Potassium 3.4 (3.4-5.1) mmol/L Chloride 104 (98-107) mmol/L Carbon Dioxide 23 (22-32) mmol/L BUN 10 (7-17) mg/dL Creatinine 0.63 (0.52-1.04) mg/dL Estimated GFR > 60 (>60) mL/min BUN/Creatinine Ratio 15.9 (6-22) Glucose 129 H (70-100) mg/dL Calcium 8.8 (8.4-10.2) mg/dL Magnesium (1.6-2.3) mg/dL Total Bilirubin 0.3 (0.2-1.3) mg/dL AST 26 (14-36) IU/L ALT 27 (<35) IU/L Alkaline Phosphatase 68 (38-126) U/L Total Protein 7.5 (6.3-8.2) g/dL Albumin 4.4 (3.5-5.0) g/dL Globulin 3.1 (1.7-4.1) g/dL Albumin/Globulin Ratio 1.4 (1.0-2.8) SARS-CoV-2 (PCR) (Negative) Influenza A (RT-PCR) (NEGATIVE) Influenza B (RT-PCR) (NEGATIVE) RSV (PCR) (Negative) Discharge Plan Departure Patient Disposition: Home Clinical Impression: Asthma with acute exacerbation Qualifiers: Asthma severity: severe Asthma persistence: persistent Qualified Code(s): J45.51 - Severe persistent asthma with (acute) exacerbation Instructions: DI for Asthma -- Adult Activity Restrictions/Additional Instructions: *You have been diagnosed with a severe asthma exacerbation. Since you are already on multiple medications to stabilize your asthma and are having exacerbations outside of this, you need a nebulizer machine and the [facility] needs to order U 1. [facility], you need to have adequate medical treatment for your asthma which is severe. Your symptoms improved greatly with nebulizers, and I am concerned about you if you are not able to access this from home. Your respiratory panel is negative for COVID, influenza a, B, and RSV. Please take 50 mg of prednisone daily for the next 5 days, I will give you more than enough so you can continue taking if you have ongoing symptoms. Please [facility] with [facility] as soon as possible and ask for referral to a big data admin or other provider who will be willing to order you nebulizer.. Please go to the emergency department tonight if you have any worsening of your breathing in your unable to tolerate your symptoms. I am sorry that the pharmacy closed, hope you feel better soon. Follow-up with Dr. Escobar as soon as possible. Ask him to complete the paperwork for nebulizer machine for you. *What to do: *Please continue to take your regular medications as directed. [ x] New medication prescriptions sent to your pharmacy: [[facility] in [place]] [ ] New medication written as a paper prescription [ ] No new medications given *Please follow up with your primary care provider in 2-3 days, call for an appointment. Let them know you were seen in the Emergency Department and that we asked that you be seen for follow-up. We will electronically transmit a record of today's note if your PCP is in our system *If you do not have a primary care provider please contact [phone] to establish care with one of the [facility] primary care providers. *Return to Emergency Department if you should have any new, worsening, or concerning symptoms, such as [fever greater than 101F, chills, worsening pain, persistent vomiting or other bothersome symptoms]. Prescriptions: New prednisone 50 mg tablet 50 mg PO DAILY Qty: 20 0RF Rx Instructions: Please take for 5 days, then break in half and take half dose until your symptoms are better. magnesium oxide 400 mg magnesium capsule 400 mg PO BEDTIME Qty: 30 0RF No Action prednisone 20 mg tablet 60 mg PO DAILY Qty: 15 0RF methylprednisolone [Medrol (Benji)] 4 mg tablets,dose pack See Rx Instructions .ROUTE .COMPLEX Qty: 21 0RF Rx Instructions: orally per package directions hydroxyzine HCl 25 mg tablet 25 mg PO BID PRN (Reason: itching) Qty: 30 0RF Referrals: Wilmer Davalos MD [Primary Care Provider] - Charles Escobar MD [Non-Staff] - As soon as possible Visit Report Forms: Patient Portal/API <Jack Wood DO - Last Filed: 03/13/22 20:20> Cosign ED Attending Cosignature Attestation: I was immediately available in the department for consultation. This documentation has been reviewed and I agree with assessment and plan. Supervised by Jack Wood DO
[2022-03-13] MEDS: ALBUTEROL/IPRATROPIUM 3 ML AMPUL INH (17:33)
[2022-03-13 17:38] VITALS: BP 136/90; PULSE 119; O2SAT 100
[2022-03-13] MEDS: DEXAMETHASONE 10 MG/ML VIAL IV (17:39)
[2022-03-13 17:52] LABS: COVID-19 CEPHEID 4-PLEX PCR Negative (Negative)
[2022-03-13 18:00] VITALS: BP 143/90; PULSE 124; O2SAT 95
--- NOTE | 2022-03-13 18:04 | DI.RAD.S_ITS ---
PROCEDURE: XR CHEST 1V INDICATIONS: asthma exacerbation TECHNIQUE: One view of the chest was acquired. COMPARISON: [facility], CR, XR CHEST 2V, 10/04/2018, 9:13. FINDINGS: Surgical changes and devices: None. Lungs and pleura: No suspicious focal airspace opacity identified. No pleural effusions or pneumothorax. Mediastinum: Mediastinal contours appear normal. Heart size is normal. Bones and chest wall: No suspicious bony lesions. Overlying soft tissues appear unremarkable. IMPRESSION: No acute cardiopulmonary abnormality. Dictated by: José Manuel Sultana M.D. on 03/13/2022 at 17:30 Approved by: José Manuel Sultana M.D. on 03/13/2022 at 17:31
[2022-03-13] MEDS: MAGNESIUM SULFATE 2 GM/50 ML PIGGYBACK IV (18:19)
[2022-03-13 18:33] LABS: Add Manual Diff / Slide Review NO; Basophils Absolute Auto 100 /uL (0-100); Basophils Percent Auto 0.6 % (0-2); Eosinophils Absolute Auto 1600 /uL (0-450); Eosinophils Percent Auto 12.3 % (2-4); Hematocrit 31.3 % (36-46); Hemoglobin 10.2 g/dL (12.0-16.0); Lymphocytes Absolute Auto 900 /uL (1100-4500); Lymphocytes Percent Auto 7.1 % (25-40); Mean Corpuscular HGB Conc 32.7 % (30-36); Mean Corpuscular Hemoglobin 28.8 PG (26-34); Monocytes Absolute Auto 800 /uL (0-900); Neutrophils Absolute Auto 9600 /uL (1500-7000); Platelet Count 316 X10^3/uL (150-400); Red Blood Cell Count 3.56 X10^6/uL (4.0-5.2); Red Cell Distribution Width 14.2 % (11.6-14.8)
--- NOTE | 2022-03-13 18:37 | RT ---
pt ramiro neb tx well, no distress noted and on room air. PF 200/210
[2022-03-13 18:52] LABS: Alanine Aminotransferase 27 IU/L (<35); Albumin 4.4 g/dL (3.5-5.0); Albumin Globulin Ratio 1.4 (1.0-2.8); Alkaline Phosphatase 68 U/L (38-126); Aspartate Aminotransferase 26 IU/L (14-36); BUN Creatinine Ratio 15.9 (6-22); Bilirubin Total 0.3 mg/dL (0.2-1.3); Blood Urea Nitrogen 10 mg/dL (7-17); Calcium 8.8 mg/dL (8.4-10.2); Carbon Dioxide 23 mmol/L (22-32); Chloride 104 mmol/L (98-107); Estimated Glomerular Filt Rate > 60 mL/min (>60); Globulin 3.1 g/dL (1.7-4.1); Glucose 129 mg/dL (70-100); HEMOLYSIS < 15 (0-50); Potassium 3.4 mmol/L (3.4-5.1); Sodium 138 mmol/L (137-145); Total Protein 7.5 g/dL (6.3-8.2)
[2022-03-13 18:53] LABS: Magnesium 1.7 mg/dL (1.6-2.3)
[2022-03-13] MEDS: ALBUTEROL 2.5 MG/3 ML NEB (ADULT) INH (19:32)
[2022-03-13 19:35] VITALS: BP 134/86; PULSE 134; RESP 16; O2SAT 96
== END 2022-03-13 19:56 | disposition home or self-care (01) ==
PROVIDERS: Emergency Medicine; Emergency Provider Nurse Practitioner Critical Care Medicine; PCP Student in an Organized Health Care Education/Training Program
DX: J45.51 Severe persistent asthma with (acute) exacerbation (principal); Z20.822 Contact with and (suspected) exposure to COVID-19
CPT/HCPCS: 0241U; 71045; 80053; 83735; 85025; 94150; 94640; 96374; 99284; J1100; J3475; J7613